=== PATIENT | male | born 1975 | race Two or more races ===

== ENCOUNTER 2020-04-08 07:21 | Inpatient (IN) | payer OTHER ==
[~2020-04-08] VITALS: Ht 172.7 cm; Wt 74.8 kg
[2020-04-08] MEDS ORDERED: COZAAR50 MG PO (15:05)
[2020-04-17] MEDS ORDERED: DICLOFENAC SODI75 MG PO (12:28)
[2020-04-17] MEDS ORDERED: OXYC1TAB9 PO (12:28)
[2020-04-17] MEDS ORDERED: PANTOPRAZOLE SO40 MG PO (12:28)
== END 2020-04-17 14:38 | disposition home or self-care (01) | DRG 331 ==
LOC: O/R 04-14 06:35 → SURG 04-14 06:35 → SURH 04-14 11:45 → SURG 04-14 14:12 → SURH 04-14 15:45 → SURG 04-17 14:38
PROVIDERS: ADMIT Surgery; ATTEND Surgery
PROC: 0DBN4ZZ Excision of Sigmoid Colon, Percutaneous Endoscopic Approach (ICD-10-PCS; 2020-04-14)
PROC: 0DJD8ZZ Inspection of Lower Intestinal Tract, Via Natural or Artificial Opening Endoscopic (ICD-10-PCS; 2020-04-14)
PROC: 0DTP4ZZ Resection of Rectum, Percutaneous Endoscopic Approach (ICD-10-PCS; principal; 2020-04-14 15:45)
DX: K57.30 Diverticulosis of large intestine without perforation or abscess without bleeding (principal); I11.9 Hypertensive heart disease without heart failure; D64.9 Anemia, unspecified